=== PATIENT | female | born 1980 | race Caucasian/White ===

== ENCOUNTER 2016-10-26 12:52 | Emergency (ER) | payer OTHER ==
[2016-10-26 14:15] LABS: URINE APPEARANCE CLEAR; URINE BILIRUBIN NEGATIVE (NEGATIVE); URINE BLOOD NEGATIVE (NEGATIVE); URINE COLOR YELLOW; URINE GLUCOSE (UA) NEGATIVE (NEGATIVE); URINE LEUKOCYTE ESTERASE NEGATIVE (NEGATIVE); URINE NITRITE NEGATIVE (NEGATIVE); URINE PROTEIN NEGATIVE (NEGATIVE); URINE UROBILINOGEN NORMAL (0-1 mg/dl)
--- NOTE | 2016-10-26 14:22 | CT ---
CT ABDOMEN AND PELVIS WITHOUT CONTRAST HISTORY: Left flank pain TECHNIQUE: No intravenous contrast administered; contiguous axial images were acquired from the lung bases to the ischial tuberosities. Oral contrast was not administered. COMPARISON:None. FINDINGS: LUNG BASES: No gross airspace consolidation or pleural effusion. LIVER: Of fatty infiltration, no gross mass effect SPLEEN: No focal mass effect. PANCREAS: No focal mass effect. ADRENAL GLANDS: No mass effect. KIDNEYS: 3 mm nonobstructive calculus of the left kidney. No ureteral dilatation or ureteral calculi identified. GALLBLADDER: Present. BOWEL: Moderate fecal loading. Limited assessment of the distal colon due to decompression. No abnormal small bowel dilatation. Minor changes of sigmoid diverticulosis without features of diverticulitis. APPENDIX: Normal gas-filled appendix. PELVIC ORGANS: No gross mass effect. FREE FLUID: No gross free fluid identified. ABDOMINOPELVIC LYMPH NODES: No abnormally enlarged lymph nodes identified. ABDOMINAL AORTA: Normal caliber. OSSEOUS STRUCTURES: Minor features of lower lumbar disc degeneration. No destructive lesions. IMPRESSION: 1. 3 mm nonobstructive left renal calculus without evidence of upper urinary tract obstruction. 2. Noninflammatory, nonobstructive appearance of bowel. Features of colonic diverticulosis without diverticulitis. Normal appendix. 3. No free fluid. 4. Minor changes of lower lumbar disc degeneration. 5. Fatty infiltration of the liver. Results were electronically transmitted to the electronic medical record at 10/26/2016 at 1418 hours.
== END 2016-10-26 15:38 | disposition home or self-care (01) ==
LOC: ED 12:52
DX: R10.9 Unspecified abdominal pain (principal); R11.0 Nausea; F17.210 Nicotine dependence, cigarettes, uncomplicated; Z87.442 Personal history of urinary calculi